=== PATIENT | female | born 1985 | race Caucasian/White ===

== ENCOUNTER 2017-10-22 12:25 | Outpatient (CLI) | payer OTHER ==
--- NOTE | 2017-10-22 13:39 | History & Physical ---
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 No other complaints. History Obstetrical History: one prior vaginal delivery Med Rec Home Meds No Active Prescriptions or Reported Meds Review of Systems All Systems Reviewed/Normal: Yes, Except as Noted Exam Fetus Heart Tones: 130 FHT Category: I Assessment and Plan Problems: (1) tachycardia before the onset of labor Assessment & Plan: reassurance as category 1 tracing here. Discharge home JLUIS COWAN MD Oct 22, 2017 13:39
== END 2017-10-22 13:40 | disposition home or self-care (01) ==
LOC: OB 12:25 → L&D 12:25 → OB 12:25 → UNDOADMOB 12:25 → UNDODISOB 13:40 → L&D 13:40 → EDSTATUS 10-23 13:18
PROVIDERS: ATTEND Obstetrics & Gynecology
DX: O76 Abnormality in fetal heart rate and rhythm complicating labor and delivery (principal); Z3A.39 39 weeks gestation of pregnancy
CPT/HCPCS: 59025; 99213; G0378; G0379

== ENCOUNTER → 2017-11-03 | Outpatient (CLI) | payer OTHER ==
--- NOTE | 2017-11-03 14:13 | RADIOLOGY IMAGING REPORT ---
FAC[place] [facility] [place] NAME: Radha Berman : 1985 MR: [id number] V: [id number] EXAM DATE: [id number] ORDERING PHYSICIAN: SARAH BEEBE TECHNOLOGIST: Location: [facility] - [place], [place] Patient: Radha Berman : 1985 Visit/Account:[id number] Date of Sevice: 11/03/2017 Exam type: BIOPHYSICAL W/O NST History: Postdate Comparison: None. Findings: The biophysical profile score is eight out of eight.. RAUL measured 15 centimeters. The gestational age by last menstrual period is 41 weeks and two days. IMPRESSION: 1. Biophysical profile score 8 out of eight RAUL 15 cm Report Dictated By: Jessica Vega MD at 11/03/2017 2:05 PM Report E-Signed By: Jessica Vega MD at 11/03/2017 2:09 PM [id number]:[email or web address]
== END ==
LOC: US 08:25
PROVIDERS: ATTEND Midwife
DX: Z34.83 Encounter for supervision of other normal pregnancy, third trimester (principal); Z3A.41 41 weeks gestation of pregnancy
CPT/HCPCS: 76819